=== PATIENT | female | born 1995 | race African-American/Black ===

== ENCOUNTER 2016-07-20 15:38 | Emergency (ER) | payer BC ==
[~2016-07-20] VITALS: Ht 170.2 cm; Wt 80.5 kg
[2016-07-20 19:24] VITALS: BP 133/74
[2016-07-20] MEDS ORDERED: VISCOUS LIDOCAINE 2% 15 ML UDC PO STA (19:36)
== END 2016-07-20 21:55 | disposition home or self-care (01) ==
LOC: ER 20:12
DX: J02.9 Acute pharyngitis, unspecified (principal); F17.200 Nicotine dependence, unspecified, uncomplicated; F12.10 Cannabis abuse, uncomplicated; R05 Cough
CPT/HCPCS: 99283